=== PATIENT | male | born 2000 | race African-American/Black ===

== ENCOUNTER 2022-08-31 19:02 | Emergency (ER) | payer OTHER, SELFPAY ==
[2022-08-31 19:04] VITALS: BP 143/89; PULSE 59; RESP 20; TEMP 36.3; O2SAT 99
--- NOTE | 2022-08-31 19:57 | PC.NURSE ---
Patient states that he is up to date on his tetanus shot.
--- NOTE | 2022-08-31 20:27 | ED.GENADULT ---
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 patient was hit in the face by a baseball. No loss of conscious. No broken teeth. Unknown tetanus Related Data Allergies Allergy/AdvReac Type Severity Reaction Status Date / Time No Known Allergies Allergy Verified 08/31/22 19:05 Exam Narrative: APPEARANCE: No apparent distress. Head: 2 cm gaping laceration on the inside of the patient's right lower lip. EYES: EOMI, NOSE: Atraumatic NECK: Trachea midline RESPIRATORY: No increased rate of breathing CARDIOVASCULAR: RRR, ABDOMINAL: Non-distended MUSCULOSKELETAl: No obvious deformities NEURO: Alert. Moving 4/4 extremities SKIN:: Warm, dry. Normal color PSYCHIATRIC: Normal affect Course Vital Signs Vital signs: Vital Signs Temperature 97.4 F L 08/31/22 19:04 Pulse Rate 59 L 08/31/22 19:04 Respiratory Rate 20 08/31/22 19:04 Blood Pressure 143/89 H 08/31/22 19:04 Pulse Oximetry 99 08/31/22 19:04 Oxygen Delivery Room Air 08/31/22 19:04 Temperature 97.4 F L 08/31/22 19:04 Pulse Rate 59 L 08/31/22 19:04 Respiratory Rate 20 08/31/22 19:04 Blood Pressure 143/89 H 08/31/22 19:04 Pulse Oximetry 99 08/31/22 19:04 Oxygen Delivery Room Air 08/31/22 19:04 Procedures Laceration Laceration 1: Date: 08/31/22 Site: lip Side (If applicable): right Size (cm): 2 Description: linear Local Anesthetic: lidocaine 1% Amount of anesthesia used (mL): 3 Pre-repair: wound explored ====== Skin Level ====== Skin layer closed with: other (chromic gut) Size (cm): 5-0 Number of sutures: 2 ====== Subcutaneous Layer ====== ====== Muscle Layer ====== ====== Tendon Layer ====== Medical Decision Making MDM Narrative Medical decision making narrative: -Presentation: 21-year-old presenting with a lip laceration on the inner surface of his right lower lip. It is gaping and 2 cm. 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 at [employer] -External Chart Review: none -Hx from independent Sources: none -Discussion of Management/Consultants: none -Independent interpretation of studies: none Dx tests considered but not ordered: none -Procedures: laceration repair -Interventions: Tdap -Shared decision making / Disposition: patient will be discharged primary care follow-up -RX Vital Signs Vital Signs: Vital Signs Temperature 97.4 F L 08/31/22 19:04 Pulse Rate 59 L 08/31/22 19:04 Respiratory Rate 20 08/31/22 19:04 Blood Pressure 143/89 H 08/31/22 19:04 Pulse Oximetry 99 08/31/22 19:04 Oxygen Delivery Room Air 08/31/22 19:04 Temperature 97.4 F L 08/31/22 19:04 Pulse Rate 59 L 08/31/22 19:04 Respiratory Rate 20 08/31/22 19:04 Blood Pressure 143/89 H 08/31/22 19:04 Pulse Oximetry 99 08/31/22 19:04 Oxygen Delivery Room Air 08/31/22 19:04 Discharge Plan Discharge Clinical Impression: Laceration Patient Disposition: Home, Self-Care Condition: Stable Instructions: Antibiotic Form, Care For Your Stitches (ED), Laceration (ED) Additional Instructions: You were seen in the emergency department for a laceration to the inside of her lip. The sutures should dissolve over the next several days. Please return if the area becomes red or infected. Follow-up/Referrals: PHYSICIAN,PER DIEM CLERK [Primary Care Provider] -
[2022-08-31 20:39] VITALS: BP 126/82; PULSE 56; RESP 14; TEMP 36.6; O2SAT 100
== END 2022-08-31 20:40 | disposition home or self-care (01) ==
PROVIDERS: Emergency Provider Emergency Medicine
DX: S01.511A Laceration without foreign body of lip, initial encounter (principal); W21.03XA Struck by baseball, initial encounter
CPT/HCPCS: 12011; 99282